=== PATIENT | male | born 1970 | race Two or more races ===

== ENCOUNTER 2023-10-05 23:42 | Emergency (ER) | payer BC ==
[~2023-10-05] VITALS: Ht 172.7 cm; Wt 73.9 kg
[2023-10-06] MEDS ORDERED: KETOROLAC TROMETHAMINE 15 MG/ML VIAL IV ONE
[2023-10-06] MEDS ORDERED: KETOROLAC TROMETHAMINE 15 MG/ML VIAL ONE (00:13)
[2023-10-06] MEDS ORDERED: KETO10TA2 PO (01:36)
[2023-10-06 01:46] VITALS: BP 143/97; TEMP 98.9; O2SAT 97
== END 2023-10-06 02:00 | disposition home or self-care (01) ==
LOC: ER 23:46
DX: R07.9 Chest pain, unspecified (principal); G20.A1 Parkinson's disease without dyskinesia, without mention of fluctuations; V89.2XXA Person injured in unspecified motor-vehicle accident, traffic, initial encounter; Y93.89 Activity, other specified; Y92.89 Other specified places as the place of occurrence of the external cause; Y99.8 Other external cause status
CPT/HCPCS: 99285; 71046; 93005; 36415; 96374; 84484; J1885